=== PATIENT | male | born 1980 | race Caucasian/White ===

== ENCOUNTER 2016-12-31 20:56 | Emergency (ER) | payer OTHER, SELFPAY ==
[~2016-12-31] VITALS: Ht 188 cm; Wt 102.5 kg
[2016-12-31] MEDS ORDERED: OMNIPAQUE 350 MG/ML, 100ML BOTTLE ONE (21:22)
[2016-12-31] MEDS ORDERED: ONDANSETRON 2MG/ML, 2ML ONE (21:27)
[2016-12-31] MEDS ORDERED: HYDROmorphone 1 MG/ML, 1ML ONE (21:27)
[2016-12-31] MEDS ORDERED: SODIUM CHLORIDE 0.9% 1,000ML IVBOLUS ONE (21:30)
[2016-12-31] MEDS ORDERED: HYDROmorphone 1 MG/ML, 1ML IVPush PRN (21:30)
[2016-12-31] MEDS ORDERED: ONDANSETRON 2MG/ML, 2ML IVPush ONE (21:30)
[2016-12-31 21:52] LABS: HEMOGLOBIN 13.1 g/dL (13.7-18.0)
[2016-12-31 22:04] LABS: BLOOD UREA NITROGEN 13 mg/dL (7-18)
[2016-12-31 22:08] LABS: ASPARTATE AMINO TRANSFERASE 19 U/L (15-37)
[2016-12-31] MEDS ORDERED: KETOROLAC 30 MG/1 ML ONE (23:26)
[2016-12-31] MEDS ORDERED: KETOROLAC 30 MG/1 ML IVPush ONE (23:30)
[2016-12-31] MEDS ORDERED: CIPROFLOXACIN/PMX 400MG/200ML 200 ML ONE (23:53)
[2017-01-01] MEDS ORDERED: CIPROFLOXACIN/PMX 400MG/200ML 200 ML IV ONE
[2017-01-01 02:00] VITALS: BP 100/58
== END 2017-01-01 02:02 | disposition home or self-care (01) ==
LOC: ED 21:53
DX: L04.1 Acute lymphadenitis of trunk (principal); F12.90 Cannabis use, unspecified, uncomplicated
CPT/HCPCS: 36415; 74177; 76870; 80053; 81003; 85025; 96361; 96365; 96375; 99285; J0744; J1170; J1885; J2405; J7030; Q9967

== ENCOUNTER → 2017-04-24 | Outpatient (CLI) | payer SELFPAY | END | disposition home or self-care (01) | LOC: CFH 16:20 | PROVIDERS: ATTEND Family Medicine | DX: K40.90 Unilateral inguinal hernia, without obstruction or gangrene, not specified as recurrent (principal); N50.82 Scrotal pain | CPT/HCPCS: 76857 ==

== ENCOUNTER 2017-10-12 21:37 | Emergency (ER) | payer MEDICAID ==
[~2017-10-12] VITALS: Ht 188 cm; Wt 74.0 kg
[2017-10-12] MEDS ORDERED: HYDROcodone/APAP 5/325 TABLET ONE (22:08)
[2017-10-12 22:22] LABS: BASOPHILS # (AUTO) 0.14 x10^3/uL (0-0.1); BASOPHILS % (AUTO) 1 % (0-1); EOSINOPHILS # (AUTO) 0.16 x10^3/uL (0-0.4); EOSINOPHILS % (AUTO) 2 % (1-7); LYMPHOCYTES # (AUTO) 3.57 x10^3/uL (1-3.4); LYMPHOCYTES % (AUTO) 34 % (22-44); MD NO; MEAN CORPUSCULAR HEMOGLOBIN 30.4 pg (27.5-34.5); MEAN CORPUSCULAR HGB CONC 34.1 g/dL (33.2-36.2); MEAN PLATELET VOLUME 8.3 fL (7.4-10.4); MONOCYTES # (AUTO) 0.69 x10^3/uL (0.2-0.8); MONOCYTES % (AUTO) 7 % (2-9); NEUTROPHILS # (AUTO) 6.02 x10^3/uL (1.8-6.8); NEUTROPHILS % (AUTO) 57 % (42-75); PLATELET COUNT 290 x10^3/uL (130-400); RED BLOOD COUNT 5.18 x10^6/uL (4.38-5.82); RED CELL DISTRIBUTION WIDTH 13.2 % (9.4-14.8)
[2017-10-12 22:23] LABS: MICROSCOPIC NOT IND
[2017-10-12 22:27] LABS: CULTURE INDICATED? NO
[2017-10-12] MEDS ORDERED: HYDROcodone/APAP 5/325 TABLET PO ONE (22:30)
[2017-10-12 22:34] LABS: ALANINE AMINOTRANSFERASE 26 U/L (12-78); ANION GAP 10 mmol/L (5-15); CALCIUM 8.6 mg/dL (8.5-10.1); CHLORIDE 108 mmol/L (98-107)
[2017-10-12 22:36] LABS: ALKALINE PHOSPHATASE 120 U/L (45-117); BILIRUBIN,TOTAL 0.3 mg/dL (0.2-1.0); TOTAL PROTEIN 7.4 g/dL (6.4-8.2)
[2017-10-12 23:50] VITALS: BP 132/82
== END 2017-10-12 23:53 | disposition home or self-care (01) ==
LOC: ED 23:20
DX: S99.921A Unspecified injury of right foot, initial encounter (principal); G89.29 Other chronic pain; G89.11 Acute pain due to trauma; R10.31 Right lower quadrant pain; X58.XXXA Exposure to other specified factors, initial encounter; Y93.89 Activity, other specified; Y92.009 Unspecified place in unspecified non-institutional (private) residence as the place of occurrence of the external cause; Y99.8 Other external cause status
CPT/HCPCS: 36415; 74018; 76700; 80053; 81003; 83690; 85025; 99285

== ENCOUNTER 2018-04-01 05:36 | Emergency (ER) | payer MEDICAID ==
[~2018-04-01] VITALS: Ht 188 cm; Wt 67.5 kg
[2018-04-01 05:38] VITALS: BP 120/77
[2018-04-01] MEDS ORDERED: DIPH,PERTUSS(ACELL),TET VAC/PF 0.5 ML IM-VACC ONE ×2 (06:26→06:30)
[2018-04-01] MEDS ORDERED: OXYcodone/APAP 5/325MG TABLET ONE (06:28)
[2018-04-01] MEDS ORDERED: RABIES IMMUNE GLOBULIN/PF 150 UNITS/ML, 2ML IM ONE (06:30)
[2018-04-01] MEDS ORDERED: RABIES VACCINE /PF 2.5 UNITS IM-VACC ONE (06:30)
[2018-04-01] MEDS ORDERED: OXYcodone/APAP 5/325MG TABLET PO ONE (06:30)
== END 2018-04-01 08:04 | disposition home or self-care (01) ==
LOC: ED 07:51
DX: S51.831A Puncture wound without foreign body of right forearm, initial encounter (principal); S51.851A Open bite of right forearm, initial encounter; Z20.3 Contact with and (suspected) exposure to rabies; W55.01XA Bitten by cat, initial encounter; Y93.89 Activity, other specified; Y92.89 Other specified places as the place of occurrence of the external cause; Y99.8 Other external cause status
CPT/HCPCS: 90375; 90471; 90472; 90675; 90715; 96372; 99284

== ENCOUNTER 2018-04-26 22:08 | Emergency (ER) | payer MEDICAID, OTHER ==
[~2018-04-26] VITALS: Ht 188 cm; Wt 69.0 kg
[2018-04-26] MEDS ORDERED: OLAN5TAB9 PO (22:12)
[2018-04-26] MEDS ORDERED: GABA600T2 PO (22:12)
[2018-04-26] MEDS ORDERED: ESCI5TAB7 PO (22:12)
[2018-04-26 23:07] VITALS: BP 108/69
== END 2018-04-26 23:15 | disposition home or self-care (01) ==
LOC: ED 23:09
DX: S83.422A Sprain of lateral collateral ligament of left knee, initial encounter (principal); F17.210 Nicotine dependence, cigarettes, uncomplicated; X50.1XXA Overexertion from prolonged static or awkward postures, initial encounter; Y93.89 Activity, other specified; Y99.0 Civilian activity done for income or pay; Y92.69 Other specified industrial and construction area as the place of occurrence of the external cause
CPT/HCPCS: 99284

== ENCOUNTER 2018-07-28 09:41 | Emergency (ER) | payer MEDICAID ==
[~2018-07-28] VITALS: Ht 188 cm; Wt 69.0 kg
[~2018-07-28 09:41] MED LIST: ESCI5TAB7 PO; GABA600T2 PO; OLAN5TAB9 PO
[2018-07-28 09:58] VITALS: BP 155/72
[2018-07-28] MEDS ORDERED: DEXAMETHASONE 4 MG/ML, 1ML PO ONE (10:30)
[2018-07-28] MEDS ORDERED: ALBUTEROL SULFATE 2.5 MG/3 ML NPPB ONE (10:30)
[2018-07-28] MEDS ORDERED: ALBUTEROL SULFATE 2.5 MG/3 ML ONE (10:33)
[2018-07-28] MEDS ORDERED: DEXAMETHASONE 4 MG/ML, 5ML ONE (10:36)
== END 2018-07-28 10:52 | disposition home or self-care (01) ==
LOC: ED 10:45
DX: B34.9 Viral infection, unspecified (principal)
CPT/HCPCS: 71046; 94640; 99284; J1100; J7613

== ENCOUNTER 2018-07-30 14:13 | Emergency (ER) | payer MEDICAID ==
[~2018-07-30] VITALS: Ht 188 cm; Wt 70.0 kg
[2018-07-30 15:09] LABS: BASOPHILS # (AUTO) 0.01 x10^3/uL (0-0.1); BASOPHILS % (AUTO) 0 % (0-1); EOSINOPHILS # (AUTO) 0.01 x10^3/uL (0-0.4); EOSINOPHILS % (AUTO) 0 % (1-7); LYMPHOCYTES # (AUTO) 1.28 x10^3/uL (1-3.4); LYMPHOCYTES % (AUTO) 8 % (22-44); MD NO; MEAN CORPUSCULAR HEMOGLOBIN 30.6 pg (27.5-34.5); MEAN CORPUSCULAR HGB CONC 34.6 g/dL (33.2-36.2); MEAN CORPUSCULAR VOLUME 88.3 fL (81-97); MEAN PLATELET VOLUME 7.7 fL (7.4-10.4); MONOCYTES # (AUTO) 0.98 x10^3/uL (0.2-0.8); MONOCYTES % (AUTO) 7 % (2-9); NEUTROPHILS # (AUTO) 12.84 x10^3/uL (1.8-6.8); NEUTROPHILS % (AUTO) 85 % (42-75); PLATELET COUNT 352 x10^3/uL (130-400); RED BLOOD COUNT 4.55 x10^6/uL (4.38-5.82); RED CELL DISTRIBUTION WIDTH 13.6 % (9.4-14.8)
[2018-07-30 15:19] LABS: ALBUMIN 3.4 g/dL (3.4-5.0); ANION GAP 11 mmol/L (5-15); CALCIUM 8.5 mg/dL (8.5-10.1); CHLORIDE 105 mmol/L (98-107)
[2018-07-30 15:26] LABS: ALANINE AMINOTRANSFERASE 25 U/L (12-78); ALKALINE PHOSPHATASE 101 U/L (45-117); BILIRUBIN,TOTAL 0.4 mg/dL (0.2-1.0); CREATININE 1.09 mg/dL (0.7-1.3); TOTAL PROTEIN 6.7 g/dL (6.4-8.2); TROPONIN I < 0.015 ng/mL (0.000-0.045)
[2018-07-30] MEDS ORDERED: SODIUM CHLORIDE 0.9% 1,000ML IVBOLUS ONE (15:30)
[2018-07-30] MEDS ORDERED: KETOROLAC 30 MG/1 ML IVPush ONE (15:30)
[2018-07-30] MEDS ORDERED: KETOROLAC 30 MG/1 ML ONE (15:43)
[2018-07-30 16:26] LABS: RAPID INFLUENZA A Negative (Negative); RAPID INFLUENZA B Negative (Negative)
[2018-07-30] MEDS ORDERED: HYDROcodone/APAP 10/325 MG TABLET ONE (16:46)
[2018-07-30] MEDS ORDERED: HYDROcodone/APAP 10/325 MG TABLET PO ONE (17:00)
[2018-07-30 17:32] LABS: CULTURE INDICATED? NO; MICROSCOPIC NOT IND
[2018-07-30 17:55] VITALS: BP 104/60
== END 2018-07-30 18:13 | disposition home or self-care (01) ==
LOC: ED 17:45
DX: B34.9 Viral infection, unspecified (principal); R50.9 Fever, unspecified; F17.200 Nicotine dependence, unspecified, uncomplicated
CPT/HCPCS: 36415; 71046; 80053; 81003; 83690; 84484; 85025; 87400; 93005; 99285; 99406; J7030

== ENCOUNTER 2018-08-22 14:15 | Inpatient (IN) | payer MEDICAID ==
[~2018-08-22] VITALS: Ht 188 cm; Wt 70.3 kg
[2018-08-22] MEDS ORDERED: DEXAMETHASONE 4 MG/ML, 1ML PO ONE (15:00)
[2018-08-22] MEDS ORDERED: DEXAMETHASONE 4 MG/ML, 5ML ONE (15:24)
[2018-08-22 15:55] LABS: MEAN CORPUSCULAR HEMOGLOBIN 28.6 pg (27.5-34.5); MEAN CORPUSCULAR HGB CONC 32.8 g/dL (33.2-36.2); MEAN CORPUSCULAR VOLUME 87.2 fL (81-97); MEAN PLATELET VOLUME 7.3 fL (7.4-10.4); PLATELET COUNT 519 x10^3/uL (130-400); RED BLOOD COUNT 4.48 x10^6/uL (4.38-5.82)
[2018-08-22 16:02] LABS: ANION GAP 6 mmol/L (5-15); CALCIUM 8.8 mg/dL (8.5-10.1); CHLORIDE 105 mmol/L (98-107)
[2018-08-22 16:03] LABS: CREATININE 1.06 mg/dL (0.7-1.3)
[2018-08-22 16:14] LABS: MD YES
[2018-08-22 16:17] LABS: <RBC MORPHOLOGY> NORMAL; BAND#(MANUAL) 1.62 x10^3/uL; BANDS%(MANUAL) 7 % (0-7); LYMPH#(MANUAL) 1.85 x10^3/uL (1-3.4); LYMPHS% (MANUAL) 8 % (22-44); MONOS#(MANUAL) 1.85 x10^3/uL (0.3-2.7); MONOS% (MANUAL) 8 % (2-9); SEG#(MANUAL) 17.79 x10^3/uL (1.8-6.8); SEGS% (MANUAL) 77 % (42-75)
[2018-08-22 16:18] LABS: <PLATELET ESTIMATE> INCREASED; <PLT MORPHOLOGY> NORMAL PLT MORPH
[2018-08-22] MEDS ORDERED: OMNIPAQUE 350 MG/ML, 100ML BOTTLE ONE (16:26)
[2018-08-22] MEDS ORDERED: KETOROLAC 30 MG/1 ML IVPush ONE (16:30)
[2018-08-22] MEDS ORDERED: SODIUM CHLORIDE 0.9% 1,000ML IVBOLUS ONE (16:30)
[2018-08-22] MEDS ORDERED: KETOROLAC 30 MG/1 ML ONE (16:38)
[2018-08-22] MEDS ORDERED: BACITRACIN ZINC OINT 500U/GM, 0.9 GM ONE (17:22)
[2018-08-22] MEDS ORDERED: GABA-827 PO (17:28)
[2018-08-22] MEDS ORDERED: LIDOCAINE-MPF 1%, 5ML INFIL ONE (17:30)
[2018-08-22] MEDS ORDERED: LIDOCAINE-MPF 1%, 5ML ONE (17:30)
[2018-08-22] MEDS ORDERED: CLINDAMYCIN PMX 600MG/50ML 50 ML IV ONE (17:30)
[2018-08-22] MEDS ORDERED: CLINDAMYCIN PMX 600MG/50ML 50 ML ONE (17:39)
[2018-08-22] MEDS ORDERED: LIDOCAINE 1%-EPI 1:100K, 30ML ONE (17:59)
[2018-08-22] MEDS ORDERED: BISACODYL 10 MG SUPP PR PRN (18:30)
[2018-08-22] MEDS ORDERED: ONDANSETRON ODT 4 MG PO PRN (18:30)
[2018-08-22] MEDS ORDERED: POLYETHYLENE GLYCOL 17 GM PACKET PO PRN (18:30)
[2018-08-22] MEDS ORDERED: ACETAMINOPHEN 325 MG TABLET PO PRN (18:30)
[2018-08-22] MEDS ORDERED: SODIUM CHLORIDE FLUSH 10ML SYR IVF PRN (18:30)
[2018-08-22] MEDS ORDERED: KETOROLAC 30 MG/1 ML IM PRN (18:30)
[2018-08-22 19:22] VITALS: BP 122/67
[2018-08-22] MEDS: HEPARIN 5,000 UNITS/ML, 1ML SQ SCH (21:40)
[2018-08-22] MEDS: NICOTINE 14MG/24 HR PATCH.TD24 TD SCH (21:40)
[2018-08-22] MEDS: SODIUM CHLORIDE 0.9% 1,000 ML IV SCH (21:40)
[2018-08-22] MEDS: KETOROLAC 30 MG/1 ML IVPush PRN (22:15)
[2018-08-23 00:14] VITALS: BP 106/59
[2018-08-23] MEDS: CLINDAMYCIN PMX 600MG/50ML 50 ML IV SCH ×3 (02:16→17:28)
[2018-08-23 04:58] LABS: MEAN CORPUSCULAR HEMOGLOBIN 29.2 pg (27.5-34.5); MEAN CORPUSCULAR HGB CONC 33.2 g/dL (33.2-36.2); MEAN CORPUSCULAR VOLUME 88.1 fL (81-97); MEAN PLATELET VOLUME 7.3 fL (7.4-10.4); PLATELET COUNT 456 x10^3/uL (130-400); RED BLOOD COUNT 4.06 x10^6/uL (4.38-5.82); RED CELL DISTRIBUTION WIDTH 13.5 % (9.4-14.8)
[2018-08-23 05:08] LABS: CALCIUM 8.4 mg/dL (8.5-10.1); CHLORIDE 108 mmol/L (98-107)
[2018-08-23 05:14] LABS: ALANINE AMINOTRANSFERASE 63 U/L (12-78); ALBUMIN 2.3 g/dL (3.4-5.0); ALKALINE PHOSPHATASE 130 U/L (45-117); ANION GAP 7 mmol/L (5-15); BILIRUBIN,TOTAL 0.2 mg/dL (0.2-1.0); CREATININE 0.88 mg/dL (0.7-1.3); TOTAL PROTEIN 6.4 g/dL (6.4-8.2)
[2018-08-23 05:17] LABS: BASOPHILS # (AUTO) 0.05 x10^3/uL (0-0.1); BASOPHILS % (AUTO) 0 % (0-1); EOSINOPHILS # (AUTO) 0.21 x10^3/uL (0-0.4); EOSINOPHILS % (AUTO) 1 % (1-7); LYMPHOCYTES # (AUTO) 1.99 x10^3/uL (1-3.4); LYMPHOCYTES % (AUTO) 11 % (22-44); MD SCAN; MONOCYTES # (AUTO) 1.52 x10^3/uL (0.2-0.8); MONOCYTES % (AUTO) 9 % (2-9); NEUTROPHILS # (AUTO) 13.89 x10^3/uL (1.8-6.8); NEUTROPHILS % (AUTO) 79 % (42-75)
[2018-08-23] MEDS: HEPARIN 5,000 UNITS/ML, 1ML SQ SCH ×2 (05:17→14:49)
[2018-08-23 07:55] VITALS: BP 116/78
[2018-08-23] MEDS: KETOROLAC 30 MG/1 ML IVPush PRN ×3 (09:08→20:56)
[2018-08-23] MEDS: SODIUM CHLORIDE 0.9% 1,000 ML IV SCH ×2 (09:08→17:28)
[2018-08-23] MEDS: SENNA/DOCUSATE TABLET PO SCH (09:08)
[2018-08-23 12:55] VITALS: BP 113/65
[2018-08-23] MEDS: NICOTINE 14MG/24 HR PATCH.TD24 TD SCH (18:35)
[2018-08-23 19:38] VITALS: BP 96/53
[2018-08-24] MEDS: SODIUM CHLORIDE 0.9% 1,000 ML IV SCH (01:11)
[2018-08-24] MEDS: CLINDAMYCIN PMX 600MG/50ML 50 ML IV SCH (01:11)
[2018-08-24] MEDS: HEPARIN 5,000 UNITS/ML, 1ML SQ SCH ×2 (01:12→08:56)
[2018-08-24 01:30] VITALS: BP 102/62
[2018-08-24 08:10] VITALS: BP 116/74
[2018-08-24] MEDS: SENNA/DOCUSATE TABLET PO SCH (08:56)
[2018-08-24] MEDS: KETOROLAC 30 MG/1 ML IVPush PRN (08:56)
[2018-08-24] MEDS ORDERED: AMPICILLIN/SULBACTAM 3 GM in SODIUM CHLORIDE 0.9% 100 ML IV SCH (12:00)
[2018-08-24 13:40] VITALS: BP 121/67
[2018-08-24] MEDS ORDERED: AMOX1TAB64 PO (15:48)
[2018-08-24] MEDS ORDERED: GABAPENTIN 300 MG CAPSULE PO SCH (16:00)
== END 2018-08-24 15:58 | disposition left against medical advice (07) | DRG 853 ==
LOC: ED 18:03 → EDIP 18:04 → ED 18:20 → 3NW 19:10
PROVIDERS: ADMIT Hospitalist; ATTEND Hospitalist
PROC: 0W950ZZ Drainage of Lower Jaw, Open Approach (ICD-10-PCS; principal; 2018-08-22)
DX: A41.9 Sepsis, unspecified organism (principal); E43 Unspecified severe protein-calorie malnutrition; Z68.1 Body mass index [BMI] 19.9 or less, adult; K12.2 Cellulitis and abscess of mouth; D64.9 Anemia, unspecified; F15.90 Other stimulant use, unspecified, uncomplicated; F17.200 Nicotine dependence, unspecified, uncomplicated; I10 Essential (primary) hypertension; J32.9 Chronic sinusitis, unspecified; M47.812 Spondylosis without myelopathy or radiculopathy, cervical region; Z66 Do not resuscitate; G89.29 Other chronic pain
CPT/HCPCS: 36415; 70491; 80048; 80053; 83605; 84145; 85025; 87040; 87070; 87075; 87147; 87205; 96361; 96365; 96375; 99285; G0378; J0295; J1644; J1885; Q9967; J7030

== ENCOUNTER 2018-09-17 18:45 | Emergency (ER) | payer MEDICAID ==
[~2018-09-17] VITALS: Ht 188 cm; Wt 65.7 kg
[~2018-09-17 18:45] MED LIST changes: +AMOX1TAB64 PO; +GABA-827 PO
[2018-09-17 18:46] VITALS: BP 118/78
[2018-09-17] MEDS ORDERED: LIDOCAINE-MPF 1%, 2ML ONE (18:58)
[2018-09-17] MEDS ORDERED: LIDOCAINE 1%, 10ML INFIL ONE (19:00)
[2018-09-17] MEDS ORDERED: BACITRACIN ZINC OINT 500U/GM, 0.9 GM ONE (20:07)
== END 2018-09-17 20:34 | disposition home or self-care (01) ==
LOC: ED 19:03
DX: S61.211A Laceration without foreign body of left index finger without damage to nail, initial encounter (principal); F17.210 Nicotine dependence, cigarettes, uncomplicated; W26.0XXA Contact with knife, initial encounter; Y93.89 Activity, other specified; Y92.009 Unspecified place in unspecified non-institutional (private) residence as the place of occurrence of the external cause; Y99.8 Other external cause status
CPT/HCPCS: 12001; 99283

== ENCOUNTER 2019-09-05 14:37 | Inpatient (IN) | payer MEDICAID ==
[~2019-09-05] VITALS: Ht 188 cm; Wt 75.9 kg
[~2019-09-05 14:37] MED LIST changes: -GABA600T2 PO; +GABA600T7 PO
[2019-09-05 16:23] LABS: BASOPHILS # (AUTO) 0.03 x10^3/uL (0-0.1); BASOPHILS % (AUTO) 0 % (0-1); EOSINOPHILS # (AUTO) 0.12 x10^3/uL (0-0.4); EOSINOPHILS % (AUTO) 1 % (1-7); LYMPHOCYTES # (AUTO) 1.94 x10^3/uL (1-3.4); LYMPHOCYTES % (AUTO) 20 % (22-44); MD NO; MEAN CORPUSCULAR HEMOGLOBIN 30.3 pg (27.5-34.5); MEAN CORPUSCULAR HGB CONC 33.1 g/dL (33.2-36.2); MEAN CORPUSCULAR VOLUME 91.3 fL (81-97); MEAN PLATELET VOLUME 7.8 fL (7.4-10.4); MONOCYTES # (AUTO) 0.54 x10^3/uL (0.2-0.8); MONOCYTES % (AUTO) 6 % (2-9); NEUTROPHILS # (AUTO) 6.99 x10^3/uL (1.8-6.8); NEUTROPHILS % (AUTO) 73 % (42-75); PLATELET COUNT 353 x10^3/uL (130-400); RED BLOOD COUNT 4.68 x10^6/uL (4.38-5.82)
[2019-09-05 16:32] LABS: ANION GAP 6 mmol/L (5-15); CALCIUM 9.4 mg/dL (8.5-10.1); CHLORIDE 107 mmol/L (98-107); CREATININE 1.05 mg/dL (0.7-1.3)
[2019-09-05 16:36] LABS: TROPONIN I < 0.015 ng/mL (0.000-0.045)
--- NOTE | 2019-09-05 18:24 | NUR ---
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
[2019-09-05] MEDS ORDERED: CEFTRIAXONE PMX 1GM/50ML 50 ML IV ONE (19:00)
[2019-09-05] MEDS ORDERED: VANCOMYCIN PER PHARMACY MC PRN ×2 (19:00→21:30)
[2019-09-05] MEDS ORDERED: MORPHINE SULFATE 4 MG/ML, 1ML IVPush PRN (19:00)
--- NOTE | 2019-09-05 19:11 | NUR ---
AT BEDSIDE TO DISCUSS POC WITH PT AT THIS TIME
[2019-09-05] MEDS ORDERED: CEFTRIAXONE PMX 1GM/50ML 50 ML ONE (19:13)
[2019-09-05] MEDS ORDERED: MORPHINE SULFATE 4 MG/ML, 1ML ONE (19:14)
[2019-09-05] MEDS ORDERED: DEXT10TA7 PO (20:12)
[2019-09-05 20:59] VITALS: BP 124/78
[2019-09-05] MEDS ORDERED: ONDANSETRON ODT 4 MG PO PRN (21:30)
[2019-09-05] MEDS ORDERED: ACETAMINOPHEN 325 MG TABLET PO PRN (21:30)
[2019-09-05] MEDS ORDERED: ONDANSETRON 2MG/ML, 2ML IVPush PRN (21:30)
[2019-09-05] MEDS ORDERED: DOCUSATE 100 MG CAPSULE PO PRN (21:30)
[2019-09-05] MEDS ORDERED: hydrALAzine 20 MG/ML, 1ML IVPush PRN (21:30)
[2019-09-05] MEDS ORDERED: PHARMACOKINETIC CONSULTATION MC ONE ×2 (21:30)
[2019-09-05] MEDS ORDERED: BISACODYL 10 MG SUPP PR PRN (21:30)
[2019-09-05] MEDS ORDERED: PROMETHAZINE 25 MG/ML, 1ML IM PRN (21:30)
[2019-09-05] MEDS ORDERED: VANCOMYCIN 1,500 MG in SODIUM CHLORIDE 0.9% 250 ML IV ONE (21:30)
[2019-09-05] MEDS ORDERED: POLYETHYLENE GLYCOL 17 GM PACKET PO PRN (21:30)
[2019-09-05] MEDS ORDERED: PHARMACOKINETIC MONITORING MC PRN ×2 (21:30)
[2019-09-05] MEDS: AMPICILLIN/SULBACTAM 3 GM in SODIUM CHLORIDE 0.9% 100 ML IV SCH (21:41)
[2019-09-05] MEDS: NICOTINE 7 MG/24 HR PATCH.TD24 TD SCH (21:42)
[2019-09-05 21:43] LABS: C-REACTIVE PROTEIN, QUANT 0.05 mg/dL (0.02-0.49)
[2019-09-05 21:52] LABS: HEMOGLOBIN A1C 5.9 % (4.2-6.3)
[2019-09-05 21:53] LABS: FREE T4 (FREE THYROXINE) 0.95 ng/dL (0.76-1.46)
[2019-09-05] MEDS: OXYcodone IR 5MG TABLET PO PRN (22:01)
[2019-09-05] MEDS: VANCOMYCIN 1,500 MG in SODIUM CHLORIDE 0.9% 250 ML IV SCH (22:25)
[2019-09-05 23:18] LABS: HCT (SEDRATE) 40.3 % (39.2-51.8)
[2019-09-06 00:44] VITALS: BP_SYST 118; BP_SYST 124; BP_DIAS 72; BP_DIAS 78
[2019-09-06] MEDS: morphine SULFATE 10 MG/ML, 1ML IVPush PRN ×3 (00:58→09:29)
[2019-09-06] MEDS: AMPICILLIN/SULBACTAM 3 GM in SODIUM CHLORIDE 0.9% 100 ML IV SCH ×4 (03:44→21:32)
[2019-09-06 06:40] LABS: BASOPHILS # (AUTO) 0.04 x10^3/uL (0-0.1); BASOPHILS % (AUTO) 1 % (0-1); EOSINOPHILS % (AUTO) 3 % (1-7); LYMPHOCYTES # (AUTO) 1.81 x10^3/uL (1-3.4); LYMPHOCYTES % (AUTO) 28 % (22-44); MD NO; MEAN CORPUSCULAR HGB CONC 33.5 g/dL (33.2-36.2); MEAN CORPUSCULAR VOLUME 89.6 fL (81-97); MEAN PLATELET VOLUME 7.6 fL (7.4-10.4); MONOCYTES # (AUTO) 0.66 x10^3/uL (0.2-0.8); MONOCYTES % (AUTO) 10 % (2-9); NEUTROPHILS # (AUTO) 3.68 x10^3/uL (1.8-6.8); NEUTROPHILS % (AUTO) 58 % (42-75); PLATELET COUNT 290 x10^3/uL (130-400); RED BLOOD COUNT 4.42 x10^6/uL (4.38-5.82); RED CELL DISTRIBUTION WIDTH 13.3 % (9.4-14.8)
[2019-09-06 06:52] LABS: ALBUMIN 3.2 g/dL (3.4-5.0); ANION GAP 8 mmol/L (5-15); CALCIUM 8.5 mg/dL (8.5-10.1); CHLORIDE 108 mmol/L (98-107)
[2019-09-06 06:57] LABS: ALANINE AMINOTRANSFERASE 27 U/L (12-78); ALKALINE PHOSPHATASE 130 U/L (45-117); BILIRUBIN,TOTAL 0.2 mg/dL (0.2-1.0); CHOL/HDL RATIO 2.2; CHOLESTEROL, TOTAL 116 mg/dL (140-239); CREATININE 0.88 mg/dL (0.7-1.3); HDL CHOL % 45 % (26-37); HDL CHOLESTEROL (DIRECT) 52 mg/dL (40-60); LDL CHOLESTEROL,CALCULATED 44 mg/dL (54-169); LDL/HDL RATIO 0.8 (0.5-3.0); TOTAL PROTEIN 6.5 g/dL (6.4-8.2); TRIGLYCERIDES 98 mg/dL (50-200); VLDL CHOLESTEROL 20 mg/dL (0-25)
[2019-09-06 07:24] VITALS: BP 110/68
[2019-09-06] MEDS: VANCOMYCIN 1,500 MG in SODIUM CHLORIDE 0.9% 250 ML IV SCH ×2 (10:54→22:07)
[2019-09-06] MEDS ORDERED: HYDROmorphone 1 MG/ML, 1ML INJ IV PRN (12:00)
[2019-09-06] MEDS: OXYcodone IR 5MG TABLET PO PRN (15:10)
[2019-09-06 15:38] VITALS: BP 113/72
[2019-09-06] MEDS: HYDROmorphone 2 MG/ML, 1ML IV PRN (18:28)
[2019-09-06 20:48] VITALS: BP 105/67
[2019-09-06] MEDS: NICOTINE 7 MG/24 HR PATCH.TD24 TD SCH (21:32)
[2019-09-07] MEDS: AMPICILLIN/SULBACTAM 3 GM in SODIUM CHLORIDE 0.9% 100 ML IV SCH ×3 (03:11→18:41)
[2019-09-07] MEDS: HYDROmorphone 2 MG/ML, 1ML IV PRN ×3 (03:11→20:16)
[2019-09-07 03:19] VITALS: BP 108/67
[2019-09-07 07:02] VITALS: BP 109/70
[2019-09-07 12:30] VITALS: BP 121/80
[2019-09-07] MEDS: VANCOMYCIN 1,500 MG in SODIUM CHLORIDE 0.9% 250 ML IV SCH (13:12)
[2019-09-07 19:29] VITALS: BP 134/80
[2019-09-07] MEDS: NICOTINE 7 MG/24 HR PATCH.TD24 TD SCH (20:17)
[2019-09-08] MEDS: AMPICILLIN/SULBACTAM 3 GM in SODIUM CHLORIDE 0.9% 100 ML IV SCH ×4 (00:53→17:45)
[2019-09-08] MEDS: VANCOMYCIN 1,500 MG in SODIUM CHLORIDE 0.9% 250 ML IV SCH ×2 (01:47→13:33)
[2019-09-08] MEDS: HYDROmorphone 2 MG/ML, 1ML IV PRN ×2 (01:47→13:32)
[2019-09-08 04:36] VITALS: BP 117/75
[2019-09-08] MEDS: OXYcodone IR 5MG TABLET PO PRN ×4 (04:46→22:04)
[2019-09-08 05:53] LABS: BASOPHILS # (AUTO) 0.03 x10^3/uL (0-0.1); BASOPHILS % (AUTO) 1 % (0-1); EOSINOPHILS # (AUTO) 0.34 x10^3/uL (0-0.4); EOSINOPHILS % (AUTO) 6 % (1-7); LYMPHOCYTES # (AUTO) 1.24 x10^3/uL (1-3.4); LYMPHOCYTES % (AUTO) 22 % (22-44); MD NO; MEAN CORPUSCULAR HGB CONC 32.8 g/dL (33.2-36.2); MEAN CORPUSCULAR VOLUME 91.6 fL (81-97); MEAN PLATELET VOLUME 7.7 fL (7.4-10.4); MONOCYTES # (AUTO) 0.47 x10^3/uL (0.2-0.8); MONOCYTES % (AUTO) 8 % (2-9); NEUTROPHILS # (AUTO) 3.66 x10^3/uL (1.8-6.8); NEUTROPHILS % (AUTO) 64 % (42-75); PLATELET COUNT 308 x10^3/uL (130-400); RED BLOOD COUNT 4.53 x10^6/uL (4.38-5.82); RED CELL DISTRIBUTION WIDTH 13.1 % (9.4-14.8)
[2019-09-08 06:08] LABS: CHLORIDE 106 mmol/L (98-107)
[2019-09-08 06:12] LABS: ANION GAP 3 mmol/L (5-15); CALCIUM 8.7 mg/dL (8.5-10.1); CREATININE 0.87 mg/dL (0.7-1.3)
[2019-09-08 09:12] VITALS: BP 118/71
[2019-09-08] MEDS ORDERED: GADOTERATE 7.5 MMOL/15 ML SYR ONE (10:57)
[2019-09-08 15:10] VITALS: BP 121/76
[2019-09-08 18:38] VITALS: BP 119/72
[2019-09-08] MEDS: NICOTINE 7 MG/24 HR PATCH.TD24 TD SCH (22:04)
[2019-09-08] MEDS: DAPTOMYCIN 450 MG in SODIUM CHLORIDE 0.9% 100 ML IVPB SCH (23:59)
[2019-09-09 00:21] VITALS: BP 110/69
[2019-09-09] MEDS: ERTAPENEM 1 GM in SODIUM CHLORIDE 0.9% 50 ML IV SCH (00:41)
[2019-09-09 06:28] LABS: AMPHETAMINE SCREEN, URINE Positive (Negative); BARBITURATE SCREEN, URINE Negative (Negative); BENZODIAZEPINE SCREEN, URINE Negative (Negative); CANNABINOID SCREEN, URINE Positive (Negative); COCAINE SCREEN, URINE Negative (Negative); METHADONE SCREEN, URINE Negative (Negative); OPIATE SCREEN, URINE Negative (Negative)
[2019-09-09] MEDS: OXYcodone IR 5MG TABLET PO PRN ×4 (07:10→20:09)
[2019-09-09 08:45] VITALS: BP 128/73
[2019-09-09 14:54] VITALS: BP 132/85
[2019-09-09 18:51] VITALS: BP 108/71
[2019-09-09] MEDS: NICOTINE 7 MG/24 HR PATCH.TD24 TD SCH (20:09)
[2019-09-09] MEDS: DAPTOMYCIN 450 MG in SODIUM CHLORIDE 0.9% 100 ML IVPB SCH (23:00)
[2019-09-10] MEDS: ERTAPENEM 1 GM in SODIUM CHLORIDE 0.9% 50 ML IV SCH (00:34)
[2019-09-10 01:52] VITALS: BP 115/78
[2019-09-10 05:08] LABS: BASOPHILS # (AUTO) 0.04 x10^3/uL (0-0.1); BASOPHILS % (AUTO) 1 % (0-1); EOSINOPHILS # (AUTO) 0.26 x10^3/uL (0-0.4); EOSINOPHILS % (AUTO) 5 % (1-7); LYMPHOCYTES # (AUTO) 1.44 x10^3/uL (1-3.4); LYMPHOCYTES % (AUTO) 28 % (22-44); MD NO; MEAN CORPUSCULAR HGB CONC 33.4 g/dL (33.2-36.2); MEAN CORPUSCULAR VOLUME 89.9 fL (81-97); MEAN PLATELET VOLUME 7.3 fL (7.4-10.4); MONOCYTES # (AUTO) 0.72 x10^3/uL (0.2-0.8); MONOCYTES % (AUTO) 14 % (2-9); NEUTROPHILS # (AUTO) 2.71 x10^3/uL (1.8-6.8); NEUTROPHILS % (AUTO) 52 % (42-75); PLATELET COUNT 308 x10^3/uL (130-400); RED BLOOD COUNT 4.63 x10^6/uL (4.38-5.82); RED CELL DISTRIBUTION WIDTH 13.3 % (9.4-14.8)
[2019-09-10] MEDS: OXYcodone IR 5MG TABLET PO PRN ×5 (05:11→22:52)
[2019-09-10 05:22] LABS: ANION GAP 4 mmol/L (5-15); CALCIUM 9.1 mg/dL (8.5-10.1); CHLORIDE 105 mmol/L (98-107); CREATININE 0.88 mg/dL (0.7-1.3)
[2019-09-10 06:54] VITALS: BP 96/67
[2019-09-10 13:05] VITALS: BP 109/79
[2019-09-10] MEDS ORDERED: FLU VACC QS2019-20 36MOS UP/PF 0.5 ML IM-VACC ONE (18:30)
[2019-09-10 18:36] VITALS: BP 120/78
[2019-09-10] MEDS: NICOTINE 7 MG/24 HR PATCH.TD24 TD SCH (20:36)
[2019-09-10] MEDS: HYDROmorphone 2 MG/ML, 1ML IV PRN (20:54)
[2019-09-10] MEDS: DAPTOMYCIN 450 MG in SODIUM CHLORIDE 0.9% 100 ML IVPB SCH (22:53)
[2019-09-11 00:32] VITALS: BP 114/73
[2019-09-11] MEDS: ERTAPENEM 1 GM in SODIUM CHLORIDE 0.9% 50 ML IV SCH (00:39)
[2019-09-11 08:59] VITALS: BP 95/68
[2019-09-11] MEDS: OXYcodone IR 5MG TABLET PO PRN ×3 (09:22→19:08)
[2019-09-11] MEDS ORDERED: DAPTOMYCIN 450 MG in SODIUM CHLORIDE 0.9% 100 ML IVPB SCH ×2 (13:00→16:00)
[2019-09-11] MEDS ORDERED: ERTAPENEM 1 GM in SODIUM CHLORIDE 0.9% 50 ML IV SCH ×2 (13:00→16:00)
[2019-09-11 13:30] VITALS: BP 117/69
[2019-09-11] MEDS ORDERED: OXYcodone IR 5MG TABLET ONE ×3 (15:22→19:06)
[2019-09-11] MEDS ORDERED: OXYC5TAB3 PO (18:47)
[2019-09-11] MEDS ORDERED: ERTA1VIA IV (18:47)
[2019-09-11] MEDS ORDERED: DAPT500V6 IV (18:47)
== END 2019-09-11 19:15 | disposition home or self-care (01) | DRG 539 ==
LOC: ED 19:14 → EDIP 19:15 → ED 19:25 → 3N 20:54 → UNDODISIN 09-11 13:51
PROVIDERS: ADMIT Internal Medicine; ATTEND Internal Medicine
PROC: 02HV33Z Insertion of Infusion Device into Superior Vena Cava, Percutaneous Approach (ICD-10-PCS; principal; 2019-09-09)
PROC: B548ZZA Ultrasonography of Superior Vena Cava, Guidance (ICD-10-PCS; 2019-09-09)
PROC: B5181ZA Fluoroscopy of Superior Vena Cava using Low Osmolar Contrast, Guidance (ICD-10-PCS; 2019-09-09)
DX: M86.8X4 Other osteomyelitis, hand (principal); J18.9 Pneumonia, unspecified organism; F10.10 Alcohol abuse, uncomplicated; F15.10 Other stimulant abuse, uncomplicated; F17.210 Nicotine dependence, cigarettes, uncomplicated; F90.9 Attention-deficit hyperactivity disorder, unspecified type; I51.7 Cardiomegaly; K58.9 Irritable bowel syndrome, unspecified; L03.012 Cellulitis of left finger; W94.0XXA Exposure to prolonged high air pressure, initial encounter; Y92.89 Other specified places as the place of occurrence of the external cause; Y99.0 Civilian activity done for income or pay; Z87.09 Personal history of other diseases of the respiratory system
CPT/HCPCS: 36415; 36573; 71046; 80048; 80053; 80061; 80202; 80307; 82040; 82550; 82784; 82787; 83036; 83735; 84439; 84443; 84484; 85025; 85651; 86140; 87040; 90686; 93005; G0378; J0295; J0696; J0878; J1170; J1335; J3370; A9575; C1751; J2270; J7050

== ENCOUNTER 2019-10-04 03:24 | Emergency (ER) | payer MEDICAID ==
[~2019-10-04] VITALS: Ht 188 cm; Wt 69.7 kg
[~2019-10-04 03:24] MED LIST changes: +DAPT500V6 IV; +DEXT10TA7 PO; +ERTA1VIA IV; +OXYC5TAB3 PO
[2019-10-04 03:25] VITALS: BP 110/62
[2019-10-04] MEDS ORDERED: HYDROcodone/APAP 5/325 TABLET ONE (04:06)
[2019-10-04] MEDS ORDERED: HYDROcodone/APAP 5/325 TABLET PO ONE (04:30)
[2019-10-04] MEDS ORDERED: BUPIVACAINE 0.25% ONE (04:35)
--- NOTE | 2019-10-04 04:38 | NUR ---
PATIENT REFUSED FINGER SPLINT.
[2019-10-04] MEDS ORDERED: BUPIVACAINE 0.25% INFIL ONE (05:00)
== END 2019-10-04 04:51 | disposition home or self-care (01) ==
LOC: ED 03:58 → EDIP 04:15 → UNDOADMIN 04:15 → ED 04:51
DX: S62.662A Nondisplaced fracture of distal phalanx of right middle finger, initial encounter for closed fracture (principal); F17.200 Nicotine dependence, unspecified, uncomplicated; W23.0XXA Caught, crushed, jammed, or pinched between moving objects, initial encounter; Y93.89 Activity, other specified; Y92.009 Unspecified place in unspecified non-institutional (private) residence as the place of occurrence of the external cause; Y99.8 Other external cause status
CPT/HCPCS: 29130; 99284

== ENCOUNTER 2020-04-18 20:08 | Emergency (ER) | payer MEDICAID ==
[~2020-04-18] VITALS: Ht 188 cm; Wt 77.3 kg
[2020-04-18 20:10] VITALS: BP 94/56
[2020-04-18] MEDS ORDERED: PLEASE ENTER HEIGHT AND WEIGHT MC SCH (20:30)
[2020-04-18] MEDS ORDERED: LIDOCAINE-MPF 1%, 5ML INFIL ONE (20:30)
[2020-04-18] MEDS ORDERED: LIDOCAINE-MPF 1%, 5ML ONE (21:06)
[2020-04-18] MEDS ORDERED: KETOROLAC 30 MG/1 ML IM ONE (22:00)
[2020-04-18] MEDS ORDERED: KETOROLAC 30 MG/1 ML ONE (22:04)
[2020-04-18] MEDS ORDERED: NEOSPORIN OINT. PKT 1 PACKET ONE (22:07)
--- NOTE | 2020-04-18 22:21 | NUR ---
2 SUTURES PLACED TO R HAND WOUND BY ER PA. PT TOLERATED WELL. WOUND DRESSED WITH ABX OINTMENT, ADAPTIC, STERILE GAUZE, KERLIEX WRAP. INSTRUCTED PT ON WOUND CARE AND ICE/ELEVATION AT HOME. TORADOL GIVEN PER ORDERS. D/C INSTRUCTIONS, MEDS & F/U APPT RV'WD WITH PT, HE VERBALIZES UNDERSTANDING. RX GIVEN X1. PT AMBULATED OUT OF ED WITH WITHOUT DIFFICULTY.
== END 2020-04-18 22:24 | disposition home or self-care (01) ==
LOC: ED 21:08
DX: S61.411A Laceration without foreign body of right hand, initial encounter (principal); M25.531 Pain in right wrist; J45.909 Unspecified asthma, uncomplicated; Z90.89 Acquired absence of other organs; X58.XXXA Exposure to other specified factors, initial encounter; Y93.89 Activity, other specified; Y92.098 Other place in other non-institutional residence as the place of occurrence of the external cause; Y99.8 Other external cause status
CPT/HCPCS: 12041; 73110; 73130; 96372; 99284; J1885